=== PATIENT | male | born 1945 | race African-American/Black ===

== ENCOUNTER 2018-08-27 18:22 | Emergency (ER) | payer MEDICARE ==
[~2018-08-27] VITALS: Ht 175.3 cm; Wt 73.0 kg
[2018-08-27] MEDS ORDERED: IBUPROFEN 600MG TABLET PO ONE (19:00)
[2018-08-27] MEDS ORDERED: KETOROLAC 60MG/2ML VIAL IM ONE (20:15)
[2018-08-27 21:09] VITALS: BP 131/90
== END 2018-08-27 21:37 | disposition home or self-care (01) ==
LOC: ER 21:03
DX: M79.631 Pain in right forearm (principal); F17.210 Nicotine dependence, cigarettes, uncomplicated; Z71.6 Tobacco abuse counseling
CPT/HCPCS: 73090; 93005; 96372; 99284; 99406; J1885